=== PATIENT | male | born 1970 | race Caucasian/White ===

== ENCOUNTER 2018-11-28 17:49 | Emergency (ER) | payer BC, MEDICARE ==
[~2018-11-28] VITALS: Ht 185.4 cm; Wt 131.5 kg
[2018-11-28] MEDS ORDERED: morphine INJ 10 MG/ML 1ML (SYR OR VIAL) IVP STA ×3 (18:19→21:12)
[2018-11-28] MEDS ORDERED: ACETAMINOPHEN 500 MG TAB (TYLENOL) PO PRN (18:30)
--- NOTE | 2018-11-28 18:33 | ED Back Pain ---
General Stated Complaint: MIDDLE BACK PAIN, HAD SPINAL CORD STIMULATOR Source of Information: Patient Exam Limitations: No Limitations History of Present Illness Date Seen by Provider: Nov 28, 2018 Time Seen by Provider: 18:29 Initial Comments This 48-year-old male underwent spinal cord stimulator placement at [facility] in [place] on Saturday. He has a history of chronic back pain. He has been complaining of severe back pain especially at the site of the implants since Saturday. In addition this morning he spiked a fever. Pain is worse with any movement and is unable to sit for prolonged periods of time. He denies paresthesias. He denies weakness or incontinence. He has had no flu symptoms either. Allergies and Home Medications Allergies Coded Allergies: mirabegron (Verified Allergy, Severe, seizure, 11/28/18) meperidine (Verified Allergy, Intermediate, hives, 11/28/18) famotidine (Verified Adverse Reaction, Severe, muscle rigidity, 11/28/18) metoclopramide (Verified Adverse Reaction, Severe, muscle rigidity, 11/28/18 ) citalopram (Verified Adverse Reaction, Intermediate, nausea, vomiting, diarrhea, 11/28/18) Patient Home Medication List Home Medication List Reviewed: Yes Review of Systems Constitutional: fever, malaise EENTM: see HPI Respiratory: no symptoms reported Cardiovascular: no symptoms reported Gastrointestinal: nausea Musculoskeletal: back pain, muscle pain, muscle stiffness Skin: see HPI All Other Systems Reviewed Negative Unless Noted: Yes Past Qamjpbb-Akjcws-Kquvhj Hx Patient Social History Alcohol Use: Denies Use Recent Foreign Travel: No Contact w/Someone Who Travel: No Past Medical History Reproductive Disorders: No Physical Exam Vital Signs Vital Signs - First Documented 11/28/18 19:10 Temp 101.7 Pulse 71 Resp 16 B/P (MAP) 128/78 (95) Pulse Ox 99 O2 Delivery Room Air Capillary Refill : Height, Weight, BMI Height: '" Weight: lbs. oz. kg; BMI Method: General Appearance: WD/WN, Anxious, Mild Distress (curled up in a ball on the cart) HEENT: PERRL/EOMI, Normal ENT Inspection Neck: Full Range of Motion, Normal Inspection, Non Tender, Supple Cardiovascular: Regular Rate, Rhythm, No Edema Respiratory: Lungs Clear, Normal Breath Sounds Gastrointestinal: Non Tender, Soft Back: Other (there is a horizontal incision in the left lower back closed with lottie. It appears red friable and has green discharge. It is extremely tender and indurated. There is also a incision over the thoracic spine which does not appear as angry.) Extremity: Normal Inspection, Normal Range of Motion Neurologic/Psychiatric: Alert, No Motor/Sensory Deficits, Normal Mood/Affect Skin: Normal Color, Warm/Dry Progress/Results/Core Measures Results/Orders Lab Results Laboratory Tests Test 11/28/18 18:30 11/28/18 18:44 Range/Units White Blood Count 11.3 H 4.3-11.0 10^3/uL Red Blood Count 3.89 L 4.35-5.85 10^6/uL Hemoglobin 12.2 L 13.3-17.7 G/DL Hematocrit 37 L 40-54 % Mean Corpuscular Volume 95 80-99 FL Mean Corpuscular Hemoglobin 31 25-34 PG Mean Corpuscular Hemoglobin Concent 33 32-36 G/DL Red Cell Distribution Width 12.4 10.0-14.5 % Platelet Count 152 130-400 10^3/uL Mean Platelet Volume 10.3 7.4-10.4 FL Neutrophils (%) (Auto) 68 42-75 % Lymphocytes (%) (Auto) 15 12-44 % Monocytes (%) (Auto) 14 H 0-12 % Eosinophils (%) (Auto) 2 0-10 % Basophils (%) (Auto) 0 0-10 % Neutrophils # (Auto) 7.7 1.8-7.8 X 10^3 Lymphocytes # (Auto) 1.7 1.0-4.0 X 10^3 Monocytes # (Auto) 1.5 H 0.0-1.0 X 10^3 Eosinophils # (Auto) 0.3 0.0-0.3 10^3/uL Basophils # (Auto) 0.0 0.0-0.1 10^3/uL Sodium Level 141 135-145 MMOL/L Potassium Level 4.0 3.6-5.0 MMOL/L Chloride Level 100 98-107 MMOL/L Carbon Dioxide Level 30 21-32 MMOL/L Anion Gap 11 5-14 MMOL/L Blood Urea Nitrogen 11 7-18 MG/DL Creatinine 1.18 0.60-1.30 MG/DL Estimat Glomerular Filtration Rate > 60 BUN/Creatinine Ratio 9 Glucose Level 107 H 70-105 MG/DL Lactic Acid Level 0.77 0.50-2.00 MMOL/L Calcium Level 9.7 8.5-10.1 MG/DL Corrected Calcium 9.9 8.5-10.1 MG/DL Total Bilirubin 1.7 H 0.1-1.0 MG/DL Aspartate Amino Transf (AST/SGOT) 14 5-34 U/L Alanine Aminotransferase (ALT/SGPT) 9 0-55 U/L Alkaline Phosphatase 52 40-136 U/L Total Protein 7.7 6.4-8.2 GM/DL Albumin 3.8 3.2-4.5 GM/DL Urine Color YELLOW Urine Clarity CLEAR Urine pH 8.5 5-9 Urine Specific [place] 1.010 L 1.016-1.022 Urine Protein NEGATIVE NEGATIVE Urine Glucose (UA) NEGATIVE NEGATIVE Urine Ketones NEGATIVE NEGATIVE Urine Nitrite NEGATIVE NEGATIVE Urine Bilirubin NEGATIVE NEGATIVE Urine Urobilinogen 0.2 NORMAL MG/DL Urine Leukocyte Esterase NEGATIVE NEGATIVE Urine RBC (Auto) TRACE H NEGATIVE Urine RBC 0-2 /HPF Urine WBC RARE /HPF Urine Squamous Epithelial Cells 10-25 H /HPF Urine Crystals NONE /LPF Urine Bacteria NONE /HPF Urine Casts NONE /LPF Urine Mucus NEGATIVE /LPF Urine Culture Indicated NO Micro Results Microbiology 11/28/18 Influenza Types A,B Antigen (HECTOR) - Final, Complete My Orders Orders - MALVIN PHELPS MD Cbc With Automated Diff (11/28/18 18:19) Comprehensive Metabolic Panel (11/28/18 18:19) Blood Culture (11/28/18 18:19) Urinalysis (11/28/18 18:19) Urine Culture (11/28/18 18:19) Chest 1 View Ap/Pa Only (11/28/18 18:19) Acetaminophen Tablet (Tylenol Tablet) (11/28/18 18:30) Saline Lock/Iv-Start (11/28/18 18:19) Lactic Acid Analyzer (11/28/18 18:19) Wound Culture (11/28/18 18:19) Influenza A And B Antigens (11/28/18 18:19) Morphine Injection (Morphine Injection (11/28/18 18:19) Vancomycin Injection (Vancomycin Injecti (11/28/18 19:30) Piperacillin/Tazobactam (Bulk) (Zosyn In (11/28/18 19:30) Morphine Injection (Morphine Injection (11/28/18 19:26) Vancomycin Injection (Vancomycin Injecti (11/28/18 19:32) Piperacillin Sodium/Tazobactam (Zosyn Vi (11/28/18 19:32) Ns (Ivpb) (Sodium Chloride 0.9%) (11/28/18 19:34) Ondansetron Injection (Zofran Injectio (11/28/18 19:45) Morphine Injection (Morphine Injection (11/28/18 21:12) Medications Given in ED Current Medications Medications Dose Ordered Sig/Frances Route Start Time Stop Time Status Last Admin Dose Admin Acetaminophen 1,000 mg ONCE PRN PO 11/28/18 18:30 11/28/18 18:52 DC 11/28/18 18:52 1,000 MG Ondansetron HCl 4 mg ONCE ONCE IVP 11/28/18 19:45 11/28/18 19:46 DC 11/28/18 19:47 4 MG Piperacillin Sod/ Tazobactam Sod 4.5 gm/Sodium Chloride 120 ml @ 240 mls/hr ONCE ONCE IV 11/28/18 19:30 11/28/18 19:59 DC 11/28/18 19:57 240 MLS/HR Vital Signs/I&O 11/28/18 11/28/18 11/28/18 11/28/18 19:10 21:29 21:41 21:45 Temp 101.7 99.9 99.9 99.9 Pulse 71 59 59 59 Resp 16 18 18 18 B/P (MAP) 128/78 (95) 102/38 (59) 102/38 102/38 (59) Pulse Ox 99 98 98 98 O2 Delivery Room Air Room Air Room Air 11/29/18 00:00 Intake Total 380 ml Balance 380 ml Progress Progress Note : Time: 19:49 Progress Note flu swab -, chest x-ray and urinalysis were negative. White count is 11. Lactate is negative. The only source I see for his fever is his surgical incision in the left lower back. A swab of this was sent for wound culture. Blood cultures were drawn. We will cover him with broad-spectrum antibiotics ( vancomycin and Zosyn). I spoke with Dr. Sky his neurosurgeon who agreed to transfer to [facility] for evaluation. Departure Impression Primary Impression: Fever Additional Impressions: Back pain Surgical wound infection Transfer Time Spoke to Accepting Phy: 19:46 Transfer Progress Notes I spoke to Dr. Edgar Sky (neurosurgeon) at [facility] via the [place] one call line. He agreed to transfer the patient to [place] ER for evaluation. I also spoke with Dr. Negron the emergency room physician was made aware. Transfer Time: 19:50 Transfer Facility: [facility] Method of Transfer: EMS Departure-Patient Inst. Referrals: MAURO HERNANDEZ MD (PCP) Primary Care Physician MALVIN PHELPS MD Nov 28, 2018 18:33
[2018-11-28 18:54] LABS: HEMATOCRIT 37 % (40-54); HEMOGLOBIN 12.2 G/DL (13.3-17.7); MEAN CORPUSCULAR HEMOGLOBIN 31 PG (25-34); MEAN CORPUSCULAR HGB CONC 33 G/DL (32-36); MEAN CORPUSCULAR VOLUME 95 FL (80-99); WHITE BLOOD COUNT 11.3 10^3/uL (4.3-11.0)
[2018-11-28 18:55] LABS: BASOPHILS % (AUTO) 0 % (0-10); EOSINOPHILS # (AUTO) 0.3 10^3/uL (0.0-0.3); EOSINOPHILS % (AUTO) 2 % (0-10); LYMPHOCYTES # (AUTO) 1.7 X 10^3 (1.0-4.0); LYMPHOCYTES % (AUTO) 15 % (12-44); MEAN PLATELET VOLUME 10.3 FL (7.4-10.4); MONOCYTES # (AUTO) 1.5 X 10^3 (0.0-1.0); MONOCYTES % (AUTO) 14 % (0-12); NEUTROPHILS # (AUTO) 7.7 X 10^3 (1.8-7.8); NEUTROPHILS % (AUTO) 68 % (42-75); PLATELET COUNT 152 10^3/uL (130-400); RED CELL DISTRIBUTION WIDTH 12.4 % (10.0-14.5)
--- NOTE | 2018-11-28 18:55 | Diagnostic Imaging Report ---
INDICATION: Back pain. FINDINGS: Heart size is normal. Mediastinum is unremarkable. There is some soft tissue prominence about the jaguar bilaterally. There is no pleural effusion or pneumothorax. Mediastinum is unremarkable. IMPRESSION: Soft tissue prominence about the jaguar bilaterally. This may simply reflect some mild venous congestion, although other underlying adenopathy cannot be excluded. Recommend clinical correlation and if warranted followup with CT chest. Dictated by: Dictated on workstation # [id number]
[2018-11-28 18:58] LABS: BILIRUBIN,URINE NEGATIVE (NEGATIVE); CLARITY,URINE CLEAR; COLOR,URINE YELLOW; GLUCOSE, URINE (UA) NEGATIVE (NEGATIVE); KETONES,URINE NEGATIVE (NEGATIVE); LEUKOCYTE ESTERASE ,URINE NEGATIVE (NEGATIVE); NITRITE,URINE NEGATIVE (NEGATIVE); PH,URINE 8.5 (5-9); PROTEIN,URINE NEGATIVE (NEGATIVE); RBC,URINE 0-2 /HPF; UROBILINOGEN,URINE 0.2 MG/DL (NORMAL); WBC,URINE RARE /HPF
[2018-11-28 19:16] LABS: CARBON DIOXIDE 30 MMOL/L (21-32); CHLORIDE 100 MMOL/L (98-107); SODIUM 141 MMOL/L (135-145)
[2018-11-28 19:17] LABS: ALKALINE PHOSPHATASE 52 U/L (40-136); BILIRUBIN,TOTAL 1.7 MG/DL (0.1-1.0); BUN/CREATININE RATIO 9; CALCIUM 9.7 MG/DL (8.5-10.1); CREATININE SERUM 1.18 MG/DL (0.60-1.30); GFR ESTIMATED > 60; GLUCOSE 107 MG/DL (70-105)
[2018-11-28 19:18] LABS: ALANINE AMINOTRANSFERASE 9 U/L (0-55); ALBUMIN 3.8 GM/DL (3.2-4.5); TOTAL PROTEIN 7.7 GM/DL (6.4-8.2)
[2018-11-28] MEDS ORDERED: PREG100C (19:20)
[2018-11-28] MEDS ORDERED: ZOLP10TA5 (19:20)
[2018-11-28] MEDS ORDERED: OXYB15TA (19:20)
[2018-11-28] MEDS ORDERED: SUCR1TAB (19:20)
[2018-11-28] MEDS ORDERED: FENT1PAT11 (19:20)
[2018-11-28] MEDS ORDERED: DIVA-76 (19:20)
[2018-11-28] MEDS ORDERED: HYDR-3816 (19:20)
[2018-11-28] MEDS ORDERED: HYDR-3812 (19:20)
[2018-11-28] MEDS ORDERED: PIPERACILLIN/TAZOBACTAM (BULK) 4.5 GM in NS (IVPB) 100 ML IV ONE (19:30)
[2018-11-28] MEDS ORDERED: VANCOMYCIN INJECTION 1,000 MG in NS (IVPB) 250 ML IV SCH (19:30)
[2018-11-28] MEDS ORDERED: VANCOMYCIN 1000 MG/VIAL ONE (19:32)
[2018-11-28] MEDS ORDERED: PIPERACILLIN/TAZO 4.5 GM VIAL (ZOSYN) IV ONE (19:32)
[2018-11-28] MEDS ORDERED: NS (IVPB) 250 ML ONE (19:34)
[2018-11-28] MEDS ORDERED: ONDANSETRON 4 MG/2 ML (SDV) Z0FRAN IVP ONE (19:45)
[2018-11-28 21:29] VITALS: BP 102/38
--- NOTE | 2018-11-28 21:33 | NUR ---
Report given to Ric MOLINA
[2018-11-28 21:45] VITALS: BP 102/38
--- OUTSIDE RECORDS SUMMARY | 2018-11-30 10:09 | XMS REPORT | Continuity of Care Document ---
Author Author [facility] Organization [facility] Address Unknown Phone Unavailable Allergies Active Description Code Type Severity Reaction Onset Reported/Identified Relationship to Patient Clinical Status Yes No Known Drug Allergies [id number] Drug Allergy Mild N/A 05/03/2009 Yes famotidine [id number] Drug Allergy Severe muscle rigidity 11/28/2018 Yes metoclopramide [id number] Drug Allergy Severe muscle rigidity 11/28/2018 Yes mirabegron [id number] Drug Allergy Severe seizure 11/28/2018 Yes citalopram [id number] Drug Allergy Moderate nausea, vomitin 11/28/2018 Yes meperidine [id number] Drug Allergy Moderate hives 11/28/2018 Medications There is no data. Problems There is no data. Procedures There is no data. Results Test Result Range Complete blood count (CBC) with automated white blood cell (WBC) differential - 11/28/18 18:30 Blood leukocytes automated count (number/volume) 11.3 10*3/uL 4.3-11.0 Blood erythrocytes automated count (number/volume) 3.89 10*6/uL 4.35-5.85 Venous blood hemoglobin measurement (mass/volume) 12.2 g/dL 13.3-17.7 Blood hematocrit (volume fraction) 37 % 40-54 Automated erythrocyte mean corpuscular volume 95 [foz_us] 80-99 Automated erythrocyte mean corpuscular hemoglobin (mass per erythrocyte) 31 pg 25-34 Automated erythrocyte mean corpuscular hemoglobin concentration measurement ( mass/volume) 33 g/dL 32-36 Automated erythrocyte distribution width ratio 12.4 % 10.0-14.5 Automated blood platelet count (count/volume) 152 10*3/uL 130-400 Automated blood platelet mean volume measurement 10.3 [foz_us] 7.4-10.4 Automated blood neutrophils/100 leukocytes 68 % 42-75 Automated blood lymphocytes/100 leukocytes 15 % 12-44 Blood monocytes/100 leukocytes 14 % 0-12 Automated blood eosinophils/100 leukocytes 2 % 0-10 Automated blood basophils/100 leukocytes 0 % 0-10 Blood neutrophils automated count (number/volume) 7.7 10*3 1.8-7.8 Blood lymphocytes automated count (number/volume) 1.7 10*3 1.0-4.0 Blood monocytes automated count (number/volume) 1.5 10*3 0.0-1.0 Automated eosinophil count 0.3 10*3/uL 0.0-0.3 Automated blood basophil count (count/volume) 0.0 10*3/uL 0.0-0.1 Blood lactic acid measurement (moles/volume) - 11/28/18 18:30 Blood lactic acid measurement (moles/volume) 0.77 mmol/L 0.50-2.00 Comprehensive metabolic panel - 11/28/18 18:30 Serum or plasma sodium measurement (moles/volume) 141 mmol/L 135-145 Serum or plasma potassium measurement (moles/volume) 4.0 mmol/L 3.6-5.0 Serum or plasma chloride measurement (moles/volume) 100 mmol/L 98-107 Carbon dioxide 30 mmol/L 21-32 Serum or plasma anion gap determination (moles/volume) 11 mmol/L 5-14 Serum or plasma urea nitrogen measurement (mass/volume) 11 mg/dL 7-18 Serum or plasma creatinine measurement (mass/volume) 1.18 mg/dL 0.60-1.30 Serum or plasma urea nitrogen/creatinine mass ratio 9 NRG Serum or plasma creatinine measurement with calculation of estimated glomerular filtration rate > NRG Serum or plasma glucose measurement (mass/volume) 107 mg/dL 70-105 Serum or plasma calcium measurement (mass/volume) 9.7 mg/dL 8.5-10.1 Serum or plasma total bilirubin measurement (mass/volume) 1.7 mg/dL 0.1-1.0 Serum or plasma alkaline phosphatase measurement (enzymatic activity/volume) 52 U/L 40-136 Serum or plasma aspartate aminotransferase measurement (enzymatic activity/ volume) 14 U/L 5-34 Serum or plasma alanine aminotransferase measurement (enzymatic activity/volume ) 9 U/L 0-55 Serum or plasma protein measurement (mass/volume) 7.7 g/dL 6.4-8.2 Serum or plasma albumin measurement (mass/volume) 3.8 g/dL 3.2-4.5 CALCIUM CORRECTED 9.9 mg/dL 8.5-10.1 Complete urinalysis with reflex to culture - 11/28/18 18:44 Urine color determination YELLOW NRG Urine clarity determination CLEAR NRG Urine pH measurement by test strip 8.5 5-9 Specific gravity of urine by test strip 1.010 1.016- 1.022 Urine protein assay by test strip, semi-quantitative NEGATIVE NEGATIVE Urine glucose detection by automated test strip NEGATIVE NEGATIVE Erythrocytes detection in urine sediment by light microscopy TRACE NEGATIVE Urine ketones detection by automated test strip NEGATIVE NEGATIVE Urine nitrite detection by test strip NEGATIVE NEGATIVE Urine total bilirubin detection by test strip NEGATIVE NEGATIVE Urine urobilinogen measurement by automated test strip (mass/volume) 0.2 mg/dL NORMAL Urine leukocyte esterase detection by dipstick NEGATIVE NEGATIVE Automated urine sediment erythrocyte count by microscopy (number/high power field) [HPF] NRG Automated urine sediment leukocyte count by microscopy (number/high power field ) RARE NRG Bacteria detection in urine sediment by light microscopy NONE NRG Squamous epithelial cells detection in urine sediment by light microscopy 10-25 NRG Crystals detection in urine sediment by light microscopy NONE NRG Casts detection in urine sediment by light microscopy NONE NRG Mucus detection in urine sediment by light microscopy NEGATIVE NRG Complete urinalysis with reflex to culture NO NRG Influenza virus A and B antigen detection - 11/28/18 18:53 FLU RESULT NEGATIVE FOR INFLUENZA A AND B ANTIGENS BY IA NRG Encounters ACCT No. Visit Date/Time Discharge Status Pt. Type Provider Facility Loc./Unit Complaint [id number] 11/28/2018 17:51:00 11/28/2018 21:41:00 DIS Emergency LENIN LYONS, MALVIN [facility] ER FS MIDDLE BACK PAIN, HAD SPINAL CORD STIMULATOR [id number] 05/13/2013 09:41:00 05/13/2013 23:59:59 CLS Outpatient
== END 2018-11-28 21:41 | disposition short-term general hospital (02) ==
LOC: EDUNIT# 17:49 → ER FS 17:51
DX: T81.40XA Infection following a procedure, unspecified, initial encounter (principal); R50.9 Fever, unspecified; M54.9 Dorsalgia, unspecified; Z88.8 Allergy status to other drugs, medicaments and biological substances; Z98.890 Other specified postprocedural states; Z96.9 Presence of functional implant, unspecified
CPT/HCPCS: 36415; 71045; 80053; 81000; 83605; 85025; 87040; 87070; 87088; 87205; 87804

== ENCOUNTER → 2019-02-25 | Outpatient (CLI) | payer BC, MEDICARE ==
[~2019-02-25] MED LIST: DIVA-76; FENT1PAT11; HYDR-3812; HYDR-3816; OXYB15TA; PREG100C; SUCR1TAB; ZOLP10TA5
--- NOTE | 2019-02-25 10:06 | Diagnostic Imaging Report ---
INDICATION: Decreased hearing and ear drainage, right greater. Patient does have prior history of cholesteatoma. TECHNIQUE: Thin slice axial imaging through the IACs was performed without contrast. Sagittal and coronal reformations were also performed. FINDINGS: RIGHT IAC: Abnormal soft tissue is identified in the medial aspect of the external auditory canal near the scutum. Soft tissue measures approximately 10 mm x 10 mm. There appears to be erosion to the scutum. The middle ear ossicles are not visualized, uncertain if these have been eroded versus prior surgery. Middle ear cavity does show some soft tissue in the mesotympanum and hypotympanum. Inner ear structures are unremarkable. LEFT IAC: On the left, external auditory canal is unremarkable. The scutum is unremarkable. The epi-, meso- and hypotympanum are unremarkable apart from minimal thickening along the medial aspect of the mesotympanum. Ossicles are unremarkable. Inner ear structures are unremarkable. IMPRESSION: Abnormal soft tissue is identified in the right middle ear cavity. Features are concerning for recurrent cholesteatoma. No other significant abnormality is detected. Dictated by: Dictated on workstation # [id number]
== END ==
LOC: RAD FS 08:57
PROVIDERS: ATTEND Otolaryngology Otolaryngology/Facial Plastic Surgery
DX: H91.93 Unspecified hearing loss, bilateral (principal); H92.10 Otorrhea, unspecified ear; Z86.69 Personal history of other diseases of the nervous system and sense organs
CPT/HCPCS: 70480

== ENCOUNTER 2019-06-29 12:25 | Emergency (ER) | payer BC, MEDICARE ==
[~2019-06-29] VITALS: Ht 185 cm; Wt 122.7 kg
[2019-06-29] MEDS ORDERED: morphine INJ 10 MG/ML 1ML (SYR OR VIAL) IM STA (13:16)
--- NOTE | 2019-06-29 13:31 | ED Lower Extremity ---
General Chief Complaint: Trauma-Non Activation Stated Complaint: FALL; COCCYX/LT KNEE INJ Nursing Triage Note: Patient fell approximately 1 hour ago and landed on L knee and twisted his back. Is complaining of tailbone pain and L knee pain rated at 8/10. Has not taken anything for pain prior to arrival. Nursing Sepsis Screen: No Definite Risk History of Present Illness Date Seen by Provider: Jun 29, 2019 Time Seen by Provider: 13:10 Initial Comments The patient is a 48-year-old male with a history of chronic back pain/other chronic pain on daily fentanyl patches who presents with concern for acute onset of low lumbar midline and left lateral low back discomfort after a mechanical ground-level fall just prior to arrival. Patient states he was ambulating into a store when he tripped and fell, landing on his left knee where an abrasion is noted anteriorly as well as on his "tailbone." He denies hitting head or neck or any other part of his body aside from the areas noted above. He has 100 [address] f[address] patch in place which he states is not appropriately controlling discomfort. He states he thinks the fentanyl patch may be "out" due to this being the 3rd day of a 72-hour patch. Patient denies loss of bowel or Bladder control, saddle anesthesia, new lower extremity weakness, numbness, tingling, new urinary retention. Allergies and Home Medications Allergies Coded Allergies: mirabegron (Verified Allergy, Severe, seizure, 11/28/18) meperidine (Verified Allergy, Intermediate, hives, 11/28/18) famotidine (Verified Adverse Reaction, Severe, muscle rigidity, 11/28/18) metoclopramide (Verified Adverse Reaction, Severe, muscle rigidity, 11/28/18) citalopram (Verified Adverse Reaction, Intermediate, nausea, vomiting, diarrhea, 11/28/18) Patient Home Medication List Home Medication List Reviewed: Yes Review of Systems Constitutional: see HPI All Other Systems Reviewed Negative Unless Noted: Yes Past Vplfdsy-Oiqztg-Jeugov Hx Past Med/Social Hx: Reviewed Nursing Past Med/Soc Hx Patient Social History 2nd Hand Smoke Exposure: No Recent Foreign Travel: No Contact w/Someone Who Travel: No Recent Infectious Disease Expo: No Recent Hopitalizations: Yes (Ric Carter 11/26/2018) Seasonal Allergies Seasonal Allergies: No Past Medical History Surgeries: Yes (Spinal Stimulator, colectomy) Tonsillectomy Respiratory: No Cardiac: No Neurological: Yes Neuropathy Reproductive Disorders: No Genitourinary: No Gastrointestinal: No Musculoskeletal: No Endocrine: No HEENT: Yes (Bilateral prosthetic inner ears) Colon Did You Recieve Any Treatments: Yes What Type of Treatment Did You: Surgical Intervention Integumentary: No Blood Disorders: No Adverse Reaction/Blood Tranf: No Family Medical History Reviewed Nursing Family Hx Physical Exam Vital Signs Vital Signs - First Documented 06/29/19 12:47 Temp 37.4 Pulse 76 Resp 16 B/P (MAP) 145/77 (99) Pulse Ox 97 Capillary Refill : Less Than 3 Seconds Height, Weight, BMI Height: 6'1.00" Weight: 290lbs. oz. 131.084502sy; 35.00 BMI Method:Stated General Appearance: no apparent distress This is an older male appearing nontoxic and in no acute distress. Head is normocephalic and atraumatic. Neck is supple and nontender. Oropharynx is moist. Lungs are clear to auscultation in all stations. There is a normal S1 and S2 without rubs or gallops and capillary refill is appropriate, less than 2 seconds globally. Abdomen is soft, nontender and nondistended. Skin is warm and dry without cyanosis, clubbing or edema. Psychiatrically, the patient illustrates appropriate mood and affect and is alert. Examination of the back reveals no erythema, warmth, swelling, step-offs or deformities. There is mild low lumbar midline and left-sided paraspinal low lumbar tenderness to palpation. No pain with ranging of the bilateral hips. Bilateral lower extremities are neurovascularly intact with strength 5 out of 5, sensation intact to light touch in all nerve distributions, DP/PT pulses 2+, capillary refill less than 2 seconds, feet warm and well-perfused. There is a minimal small abrasion to the left knee anteriorly and mild pain with ranging of the left knee only. Progress/Results/Core Measures Results/Orders My Orders Orders - RHETT MERCER MD Morphine Injection (Morphine Injection (06/29/19 13:16) Lumbar Spine 2 Or 3 View (06/29/19 13:16) Pelvis (Ap) (06/29/19 13:16) Knee 3 View Left (06/29/19 13:16) Vital Signs/I&O 06/29/19 12:47 Temp 37.4 Pulse 76 Resp 16 B/P (MAP) 145/77 (99) Pulse Ox 97 Blood Pressure Mean: 99 Progress Progress Note : Progress Note We will remove the patient's fentanyl patch, provide analgesia as noted, obtain plain films and then reevaluate. His tetanus is up-to-date. Update 1410: The patient is feeling better upon reassessment after medication here in the emergency department. Plain films are without evidence of fracture. We will proceed with discharge home at this time. Patient is counseled to use his home pain medications as needed for discomfort and follow up very closely with primary care in the next 1-2 days. He understands if he feels worse is that of better or develops other symptoms of concern that he will need to return immediately for reevaluation. All questions are answered. Departure Impression Primary Impression: Fall from other slipping, tripping, or stumbling Additional Impressions: Abrasion, left knee, initial encounter Low back pain Disposition: HOME, SELF-CARE Condition: Improved Departure-Patient Inst. Referrals: MAURO HERANNDEZ MD (PCP/Family) Primary Care Physician Patient Instructions: Low Back Pain (DC), Skin Abrasions (DC) Add. Discharge Instructions: Follow-up with your primary care physician in the next 1-2 days for reevaluation of her symptoms. Return immediately to the emergency department worsen symptoms or other new concerns. RHETT MERCER MD Jun 29, 2019 13:30
--- NOTE | 2019-06-29 14:09 | Diagnostic Imaging Report ---
Left knee at 1:13 Indication: Injury, knee pain. 3 views were obtained. There are no prior studies available for comparison. There is no fracture, dislocation or acute bony abnormality evident. The knee joint is fairly well-maintained. The soft tissues are unremarkable. There is no sign of joint effusion. Impression: There is no evidence for an acute bony abnormality. Dictated by: Dictated on workstation # [id number]
--- NOTE | 2019-06-29 14:10 | Diagnostic Imaging Report ---
Pelvis at 1:11 Indication: Fell, pelvic pain. Findings: A single AP view of the pelvis is obtained. There are no prior studies available for comparison. There is no fracture, dislocation or acute bony abnormality evident. There is a mild degenerative disease of the hip and sacroiliac joints. The soft tissues are unremarkable. Impression: There is no evidence for acute bony abnormality. Dictated by: Dictated on workstation # [id number]
--- NOTE | 2019-06-29 14:17 | Diagnostic Imaging Report ---
EXAMINATION: Lumbar spine at 112h. INDICATION: Fell AP, lateral and spot lateral views were obtained. There are no prior studies available for comparison. The lateral view shows slight anterior translation of L4 with respect to L5. The alignment of the other vertebral bodies is within normal limits. The intervertebral spaces are fairly well-maintained. There is passive very mild compression deformity of the superior endplate of L1. I suspect this is long-standing in nature. There is no fracture or acute bony abnormality appreciated. There is no sign of a paraspinal mass. There is mild symmetrical scoliosis of the sclerotic joint. IMPRESSION: The mild compression deformity of L1 is felt to be long-standing in nature. There is no acute bony abnormality appreciated. Dictated by: Dictated on workstation # [id number]
[2019-06-29 14:33] VITALS: BP 140/77
== END 2019-06-29 14:35 | disposition home or self-care (01) ==
LOC: EDUNIT# 12:25 → ER FS 12:27
DX: S80.212A Abrasion, left knee, initial encounter (principal); M54.5 Low back pain; G62.9 Polyneuropathy, unspecified; Z90.49 Acquired absence of other specified parts of digestive tract; Z88.5 Allergy status to narcotic agent; Z88.8 Allergy status to other drugs, medicaments and biological substances; Z90.89 Acquired absence of other organs; Y92.512 Supermarket, store or market as the place of occurrence of the external cause
CPT/HCPCS: 72100; 72170; 73562; 96372

== ENCOUNTER → 2022-05-31 | Outpatient (CLI) | payer OTHER, MEDICARE ==
[~2022-05-31] MED LIST changes: +ACHD5005; +HYDR-34; -HYDR-3812; -HYDR-3816; -OXYB15TA; +OXYB15TA19
== END ==
LOC: LAB FS 08:55
PROVIDERS: ATTEND Pediatrics
DX: Z20.822 Contact with and (suspected) exposure to COVID-19 (principal)
CPT/HCPCS: 87636